=== PATIENT | male | born 1930 | race Caucasian/White ===

== ENCOUNTER 2017-01-28 19:41 | Observation (INO) | payer OTHER ==
[~2017-01-28] VITALS: Ht 165.1 cm; Wt 71.2 kg
[~2017-01-28 19:41] MED LIST: ACETAMINOPHEN500 MG PO; ADULT LOW DOSE81 M1 PO; ADVIL,NUPRIN,M200 MG PO; AGGRENOX1 CAPSULE PO; ALL DAY ALLERGY10 M2 PO; ALLEGRA180 MG PO; ASCORBIC ACID500 M3 PO; ASPIR 8181 M1 PO; ASPIR-LOW81 MG PO; AUGMENTIN500 MG PO; AVELOX400 MG PO; Aggrenox PO; Ambien PO; Ascorbic Acid,Ester- PO; B-50 COMPLEX1 EACH PO; BALANCE B-501 EAC1 PO; BAYER CHEWABLE81 MG PO; CALCITRIOL0.25 MCG PO; CEFTIN500 MG PO; CHILDREN'S ASPI81 M1 PO; CINNAMON PLUS1 EACH PO; CITRACAL + BON1 EACH PO; CITRACAL + D E1 EACH PO; CITRACAL D + H1 EACH PO; CITRACAL PLUS1 EAC1 PO; CITRACAL W/V1 TABLE1 PO; CLOBETASOL PROP60 G1 TP; CLORAZEPATE DI7.5 MG PO; CO Q-1010 MG PO; CO Q-10100 MG PO; COLACE100 MG PO; COMPAZINE10 MG PO; Citracal Maximum (Ca PO; Claritin,Alavart PO; DAILY VALUE1 EACH PO; DAILY VITAMIN1 EAC8 PO; Desyrel PO; Dulcolax PO; ELIQUIS2.5 MG PO; FLOMAX0.4 M1 PO; FLOMAX0.4 MG PO; Flomax PO; Folvite PO; GLYBURIDE MICR1.5 M1 PO; Humibid LA,Mucinex PO; IMDUR30 MG PO; ISOSORBIDE MONO10 M1 PO; ISOSORBIDE MONO30 MG PO; K-Dur PO; KLOR-CON 1010 ME1 PO; KLOR-CON M1010 MEQ PO; KLOR-CON M2020 MEQ PO; Klor-Con M20 PO; LASIX20 MG PO; LASIX40 MG PO; LIPITOR40 MG PO; LISINOPRIL5 MG PO; LOPRESSOR25 MG PO; LOPRESSOR50 MG PO; LUNESTA2 MG PO; LYRICA100 MG PO; LYRICA200 MG PO; LYRICA50 MG PO; Lasix PO; Levaquin PO; Lipitor PO; Lopressor PO; METOPROLOL TART25 MG PO; MULTIPLE VITAM1 EACH PO; MULTIVITAMIN1 EAC2 PO; NASACORT AQ16.5 GM BOTH NARES; NASONEX17 GM NS; NIASPAN,SLO-NI500 MG PO; NITROGLYCERIN0.4 MG SL; NITROGLYCERIN4.1 GM MM; NITROLINGUAL S4.9 GM MM; NITROSTAT,NITR0.4 M1 SL; NITROSTAT0.4 MG SL; Niaspan,Slo-Niacin PO; Nitrostat,NitroQuick SL; ONE-A-DAY ESSE1 EAC1 PO; Oscal 500 w/Vitamin PO; PLAVIX75 MG PO; PRILOSEC OTC20 MG PO; PROSTATE HEALT1 EACH PO; PROSTATE THERA1 EACH PO; PROTONIX40 MG PO; Plavix PO; Protonix PO; RANEXA500 MG PO; REGLAN10 MG PO; Reglan PO; SODIUM CHLOR1L 0.9 IV; Senokot S,Pericolace PO; THERAGRAN1 TABLET PO; TRANXENE T PO; TRANXENE T-TAB7.5 MG PO; TYLENOL EXTRA500 MG PO; TYLENOL REGULA325 MG PO; Tylenol Regular Stre PO; Tylenol W/ Codeine PO; VITAMIN; VITAMIN B-1250 MC3 PO; VITAMIN D1000 UNIT PO; VITAMIN D31000 UNI2 PO; VITAMIN D31000 UNIT PO; VITAMIN E200 UNI2 PO; VITAMIN E200 UNIT PO; VITAMIN E400 UNIT PO; WYGESIC,DARV1 TABLET PO; ZESTRIL10 MG PO; ZETIA10 MG PO; ZOFRAN ODT4 MG PO; ZOFRAN ODT8 MG PO; ZOFRAN4 MG PO; ZOLOFT50 MG PO; ZYRTEC10 M2 PO; ZYRTEC10 M3 PO; Zestril,Prinivil PO; ZyrTEC PO; [UNRECOGNIZED DRUG - OTHER]; [UNRECOGNIZED DRUG - OTHER] PO; [UNRECOGNIZED DRUG - OTHER] PO; [UNRECOGNIZED DRUG - OTHER] PO; [UNRECOGNIZED DRUG - OTHER] PO; [UNRECOGNIZED DRUG - OTHER] PO; [UNRECOGNIZED DRUG - OTHER] PO; oxyCODONE PO
[2017-01-28 21:17] LABS: HEMATOCRIT 32.5 % (38.0-50.0); MCH 32.5 PG (29.0-34.0); MCHC 34.5 G/DL (30.0-36.0); MCV 94.2 FL (86-99); MEAN PLAT.VOLUME 9.6 uM^3 (9.0-12.4); PLATELET COUNT 142 K/uL (156-360); RBC DIS.WIDTH-CV 14.2 % (11.8-14.6); RBC DIS.WIDTH-SD 48.8 % (39-53); RED BLOOD COUNT 3.45 M/uL (4.00-5.50); WHITE BLOOD COUNT 8.8 K/uL (4.1-10.2)
[2017-01-28 21:25] LABS: CHLORIDE 102 mEq/L (99-109); SODIUM 137 mEq/L (136-147)
[2017-01-28 21:26] LABS: GLUCOSE 156 mg/dL (70-99)
[2017-01-28 21:28] LABS: ANION GAP 12 MEQ/L (2-14)
[2017-01-28 21:30] LABS: GFR ESTIMATE (CALCULATED) 51 mL/min/
[2017-01-28 21:31] LABS: UREA NITROGEN (BUN) 13 mg/dL (9-23)
[2017-01-28 21:39] LABS: TROP-I INTERPRETATION NEGATIVE; TROPONIN-I 0.02 ng/mL (0.0-0.30)
[2017-01-29 02:48] VITALS: BP 168/77
[2017-01-29 04:32] LABS: TROP-I INTERPRETATION NEGATIVE; TROPONIN-I 0.01 ng/mL (0.0-0.30)
[2017-01-29 04:57] LABS: HDL CHOLESTEROL 28 MG/DL (Desirable>=40); LDL CHOLESTEROL 98 mg/dL (Desirable<100); NON-HDL CHOLESTEROL 125 mg/dL (Desirable<160); TOTAL CHOLESTEROL 153 mg/dL (Desirable<200); TRIGLYCERIDES 135 MG/DL (Normal: <150)
[2017-01-29 08:02] LABS: METH RESISTANT S AUREUS PCR NEGATIVE (NEGATIVE); PROBE CHECK PASS; SPECIMEN PROCESSING CONTROL PASS
[2017-01-29 08:10] VITALS: BP 126/71
[2017-01-29 08:58] LABS: ANION GAP 7 MEQ/L (2-14); CHLORIDE 103 MEQ/L (99-109); GFR ESTIMATE (CALCULATED) 56 mL/min/; POTASSIUM 4.2 MEQ/L (3.7-5.4); SODIUM 137 MEQ/L (136-147); UREA NITROGEN (BUN) 13 mg/dL (9-23)
[2017-01-29 08:59] LABS: GLUCOSE 88 mg/dL (70-99)
[2017-01-29] MEDS ORDERED: ASPIR-LOW81 MG PO (11:10)
[2017-01-29 11:19] LABS: TROP-I INTERPRETATION NEGATIVE; TROPONIN-I 0.02 ng/mL (0.0-0.30)
[2017-01-29] MEDS ORDERED: NEURONTIN100 MG PO (12:04)
[2017-01-29 12:22] VITALS: BP 160/77
[2017-01-29] MEDS ORDERED: ASPIRIN81 M2 PO (12:53)
[2017-01-29] MEDS ORDERED: LASIX40 MG PO (12:56)
[2017-01-29] MEDS ORDERED: PROZAC20 MG PO (12:58)
[2017-01-29] MEDS ORDERED: OMEPRAZOLE20 MG PO (12:59)
[2017-01-29] MEDS ORDERED: SIMVASTATIN20 MG PO (13:00)
[2017-01-29] MEDS ORDERED: MELATONIN3 MG PO (13:00)
[2017-01-29] MEDS ORDERED: MILK OF MAGN PO (13:05)
[2017-01-29] MEDS ORDERED: PROMETHAZINE HC25 M1 PO (13:06)
[2017-01-29] MEDS ORDERED: FLEET ENEMA-AD118 ML PR (13:06)
[2017-01-29] MEDS ORDERED: DULCOLAX10 MG PR (13:06)
[2017-01-29] MEDS ORDERED: ACETAMINOPHEN325 M1 PO (13:07)
[2017-01-29] MEDS ORDERED: ALUM-MAG HYDRO360 ML PO (13:08)
[2017-01-29 15:30] VITALS: BP 137/69
== END 2017-01-29 15:30 ==
LOC: EME → EDBD 19:41 → ENPENDDIS 01-29 → 5WEST 01-29 01:34 → EDOF 01-29 01:34 → 5WEST 01-29 01:34 → ENRESERV 01-29 01:37 → 5WEST 01-29 02:34
PROVIDERS: Hospitalist; Physician Assistant Medical
DX: R07.9 Chest pain, unspecified (principal); I25.10 Atherosclerotic heart disease of native coronary artery without angina pectoris; I12.9 Hypertensive chronic kidney disease with stage 1 through stage 4 chronic kidney disease, or unspecified chronic kidney disease; N18.9 Chronic kidney disease, unspecified; I48.2 Chronic atrial fibrillation; E78.5 Hyperlipidemia, unspecified; E11.22 Type 2 diabetes mellitus with diabetic chronic kidney disease; Z86.73 Personal history of transient ischemic attack (TIA), and cerebral infarction without residual deficits; K21.9 Gastro-esophageal reflux disease without esophagitis; N40.0 Benign prostatic hyperplasia without lower urinary tract symptoms; K65.4 Sclerosing mesenteritis; M48.06 Spinal stenosis, lumbar region; M54.16 Radiculopathy, lumbar region; M19.90 Unspecified osteoarthritis, unspecified site; G30.9 Alzheimer's disease, unspecified; F02.80 Dementia in other diseases classified elsewhere, unspecified severity, without behavioral disturbance, psychotic disturbance, mood disturbance, and anxiety; I25.2 Old myocardial infarction; K44.9 Diaphragmatic hernia without obstruction or gangrene; Z95.5 Presence of coronary angioplasty implant and graft; Z85.828 Personal history of other malignant neoplasm of skin; Z66 Do not resuscitate; Z79.4 Long term (current) use of insulin; Z79.01 Long term (current) use of anticoagulants; Z82.49 Family history of ischemic heart disease and other diseases of the circulatory system; Z83.3 Family history of diabetes mellitus; Z80.9 Family history of malignant neoplasm, unspecified; Z82.0 Family history of epilepsy and other diseases of the nervous system; Z88.1 Allergy status to other antibiotic agents; Z88.2 Allergy status to sulfonamides; Z91.018 Allergy to other foods
CPT/HCPCS: 71020; 71275; 80048; 80061; 82948; 84484; 85027; 87641; 93005; 99281; 99285; G0378; J7030